=== PATIENT | female | born 1975 | race Hispanic/Latino ===

== ENCOUNTER 2017-08-01 15:36 | Emergency (ER) | payer MEDICARE ==
[~2017-08-01] VITALS: Ht 162.6 cm; Wt 88.0 kg
[2017-08-01] MEDS ORDERED: DIAZEPAM 5 MG TAB PO STA (16:26)
[2017-08-01] MEDS ORDERED: KETOROLAC TROMETHAMINE 60 MG/2 ML VIAL IM ONE (16:30)
[2017-08-01] MEDS ORDERED: HYDROCODONE/APAP 10MG-325MG TAB PO ONE (16:30)
== END 2017-08-01 18:05 | disposition home or self-care (01) ==
LOC: ER 15:36
DX: M54.5 Low back pain (principal); S39.012A Strain of muscle, fascia and tendon of lower back, initial encounter; G89.29 Other chronic pain; F41.9 Anxiety disorder, unspecified
CPT/HCPCS: 99284; J1885